=== PATIENT | female | born 1975 | race Caucasian/White ===

== ENCOUNTER → 2018-09-16 | Outpatient (CLI) | payer OTHER | END | disposition home or self-care (01) | LOC: LABPAT 16:49 | PROVIDERS: ATTEND Orthopaedic Surgery | DX: Z01.812 Encounter for preprocedural laboratory examination (principal) | CPT/HCPCS: 87070 ==

== ENCOUNTER 2018-10-03 11:33 | Inpatient (IN) | payer BC, OTHER ==
--- NOTE | 2018-10-02 09:42 | HP ---
HISTORY AND PHYSICAL REASON FOR ADMISSION: Surgery 10/03/2018. HISTORY OF PRESENT ILLNESS: Louise Galvan is a 43-year-old patient seen with symptomatic right knee osteoarthritis. We discussed options for treatment. She elected to proceed with right total knee arthroplasty. Consent was obtained. Medical clearance was provided by ROBERT Cornell. PAST MEDICAL HISTORY: Hypothyroidism, noninsulin dependent diabetes, hypertension. PAST SURGICAL HISTORY: Carpal tunnel release, cholecystectomy, left knee arthroscopy, laparoscopic gastric band. DAILY MEDICATIONS: Levothyroxine, spironolactone, lorazepam, Protonix. ALLERGIES: None. SOCIAL HISTORY: She denies current tobacco use. PHYSICAL EXAMINATION: Evaluation of the right knee: Range of motion is -2/3 to 120 degrees. Tenderness along the medial joint line. There is crepitus along the medial and patellofemoral compartments with range of motion. There is pain along the patellofemoral compartment with patellofemoral compression. Ligaments are stable. Hip rotation is without pain. Distal neurovascular exam is intact. RADIOGRAPHS: Right knee radiographs demonstrate is severe medial compartment osteoarthritis. IMPRESSION: 1. Right knee osteoarthritis. 2. Hypertension. 3. Noninsulin dependent diabetes. 4. Hypothyroidism. PLAN: Right total knee arthroplasty. Surgery is 10/03/2018. MMODL / IJN: [id number] /
[~2018-10-03 11:33] MED LIST: ACETAMINOPHEN TAB 500 MG TAB PO ONE; MELOXICAM 7.5 MG TAB PO ONE; TRANEXAMIC ACID 1,000 MG in SODIUM CHLORIDE 0.9% 100 ML IVPB ONE; ceFAZolin IN SWFI 2 GM/20 ML SYRINGE IVP ONE
[2018-10-03] MEDS ORDERED: LACTATED RINGERS 1,000 ML IV SCH (11:42)
[2018-10-03] MEDS ORDERED: LIDOCAINE 1% 20 ML VIAL (10MG/ML) FOR IV START INTRADERMA PRN (11:42)
[2018-10-03] MEDS ORDERED: DEXAMETHASONE SOD PHOSPHATE 10 MG/ML 1 ML VIAL IV ONE (11:42)
[2018-10-03] MEDS ORDERED: ONDANSETRON 4 MG/2 ML VIAL IVP ONE (11:42)
[2018-10-03] MEDS ORDERED: ROPIVACAINE 246.25 MG, EPINEPHrine 0.5 MG, KETOROLAC 30 MG, cloNIDine HCL/PF 80 MCG, WA... MISCELLANE ONE ×5 (12:16)
[2018-10-03] MEDS ORDERED: MIDAZOLAM (PF) 2 MG/2 ML VIAL IVP ONE (12:33)
[2018-10-03] MEDS ORDERED: PROPOFOL 10 MG/ML 20 ML VIAL IV ONE (12:58)
[2018-10-03] MEDS ORDERED: SODIUM CHLORIDE 0.9% 100 ML BAG ONE (12:58)
[2018-10-03] MEDS ORDERED: MIDAZOLAM 2 MG/2 ML VIAL ONE (12:58)
[2018-10-03] MEDS ORDERED: TRANEXAMIC ACID 1,000 MG/10 ML VIAL ONE (12:58)
[2018-10-03] MEDS ORDERED: KETAMINE 10 MG/ML 20 ML VIAL ONE (12:58)
[2018-10-03] MEDS ORDERED: fentaNYL (PF) 50 MCG/ML 2 ML AMP ONE (12:58)
[2018-10-03] MEDS ORDERED: ceFAZolin 3,000 MG in SODIUM CHLORIDE 0.9% IRRIGATIO 3,000 ML IRRIGATION ONE (13:37)
--- NOTE | 2018-10-03 14:56 | P.OP ---
Date of Procedure: 10/03/18 Preoperative Diagnosis: Right knee osteoarthritis Postoperative Diagnosis: Right knee osteoarthritis Procedure(s) Performed: Right total knee arthroplasty Implants: 1. Depuy attune size 4 right cruciate-retaining cemented femur 2. Depuy attune size 4 fixed bearing cemented tibial baseplate 3. Depuy attune fixed bearing cruciate retaining size 410 mm polyethylene tibial insert 4. Depuy attune 35 mm all polyethylene cemented patella Anesthesia: regional (Adductor canal catheter), local, spinal Surgeon: Bijan Castelan Transmission Worker #1: Parker Montaño Estimated Blood Loss (ml): 40 Pathology: other (Bone) Condition: stable Disposition: PACU Indications for Procedure: 43-year-old patient seen with symptomatic right knee osteoarthritis. After having treatment options discussed, she elected to proceed with total knee arthroplasty. Operative Findings: See description of procedure Description of Procedure: Patient was taken to the operative suite after having an adductor canal catheter placed by the department of anesthesia for postoperative pain management. Patient underwent a spinal anesthetic by the department of anesthesia. Patient was given preoperative IV intake antibiotics and TXA. A well-padded tourniquet was placed about the right lower extremity. The lower extremity was then prepped and draped in the normal sterile orthopedic fashion. The extremity was elevated, a tourniquet was insufflated to 300. A standard anterior incision was made sharply through skin. Dissection was taken down through the subcutaneous soft tissues down to the extensor mechanism. A medial arthrotomy was performed, patella was everted and knee was flexed. There was advanced osteoarthritis noted. I introduced my distal intramedullary femoral drill. I then introduced the distal femoral cutting jig. Jose Juan LANDON secured the cutting jig with 2 pins. I held retractors in position while Jose Juan LANDON performed the distal femoral resection through the guide area we now removed her distal femoral cutting guide. We now placed our 4-in-1 femoral cutting block and positioned and it was secured with 2 pins by Jose Juan LANDON while I held the block in position. The distal femoral finishing was now completed. A proximal tibial cutting guide was positioned. I held the guide in the appropriate position with both hands well Jose Juan LANDON inserted stabilizing pins into the guide. Proximal tibial cut was made. We now placed a trial femoral component into position, along with an appropriate size tibial tray and insert. We now took the knee through range of motion and had full extension good flexion and good overall soft tissue balance noted. The patella was everted and stabilized with 2 towel clips held by Jose Juan LANDON while I performed a flush with patellar quad tendon utilizing a fresh sawblade. We templated the patella, appropriate drill holes were made. An appropriate trial patella was positioned, knee was taken through full range of motion with the patella tracking very nicely. The trial patella was removed. Drill holes were made through the femoral component. All trial components were removed after marking off the appropriate rotation of the tibia. Retractors were now positioned along the proximal tibia. An appropriate keel punch was made with the appropriate size tibial guide by myself on Jose Juan LANDON assisted by holding retractors. At this point appropriate size implants were chosen and opened. The joint was irrigated copiously with pulse lavage mechanical irrigation. The posterior capsule was infiltrated with local analgesic. The wound was irrigated with pulse lavage mechanical irrigation. We mixed antibiotic methylmethacrylate. We placed the knee into flexion. We placed multiple retractors assisted by Jose Juan LANDON to expose the proximal tibia. Once the methyl methacrylate was ready, the tibial component was cemented into place removing any excess methylmethacrylate form by both myself and Jose Juan LANDON. The femoral component was cemented into place removing the removing any excess methylmethacrylate performed by both myself and Jose Juan LANDON. We then inserted the appropriate size polyethylene tibial insert. We made sure that it was locked into position. We took the knee into full extension, and then back in a flexion making sure we had removed any excess methylmethacrylate. The patellar component was then cemented down and secured with clamp. Excess methylmethacrylate removed. We kept the knee in full extension, patellar clamp in position until methylmethacrylate had hardened. Once it had hardened the patellar clamp was removed. The knee was taken through full range of motion. The patella tracked nicely. There was good soft tissue balancing. The tourniquet was now released. Additional hemostasis was achieved via electrocautery. A second gram of TXA was given. The wound again was irrigated with pulse lavage mechanical irrigation. The superficial soft tissues were infiltrated local analgesic. The extensor mechanism was repaired with Vicryl. We checked the repair with range of motion and it was stable. The subcutaneous soft tissues were repaired with Vicryl in layers. The skin was approximated with pernio/Dermabond. Sterile dressings were applied followed by loose web roll and Husam bandage. The patient was transferred to a bed, and taken to recovery in stable and satisfactory condition. Jose Juan LANDON assisted with this complex procedure.
[2018-10-03] MEDS ORDERED: HYDROmorphone 0.5 MG/0.5 ML SYRINGE IVP PRN (14:57)
[2018-10-03] MEDS ORDERED: ONDANSETRON 4 MG/2 ML VIAL IVP PRN (14:57)
[2018-10-03] MEDS ORDERED: HYDROcodone/APAP 5-325MG 1 EACH TAB PO PRN (14:57)
[2018-10-03] MEDS ORDERED: NALOXONE 0.4 MG/ML 1 ML VIAL IV PRN (14:57)
[2018-10-03] MEDS: MEPERIDINE 50 MG/ML SYRINGE IVP ONE ×2 (15:07→15:11)
[2018-10-03] MEDS ORDERED: ROPIVACAINE 1,100 MG, SODIUM CHLORIDE 0.9% 500 ML 330 ML MISCELLANE PRN ×2 (15:23)
--- NOTE | 2018-10-03 15:40 | XR ---
EXAMINATION TYPE: XR knee limited RT DATE OF EXAM: 10/03/2018 COMPARISON: NONE HISTORY: 43-year-old female evaluation for postoperative abnormality and alignment TECHNIQUE: 2 views FINDINGS: Images show placement of right ovarian arthroplasty. Both distal femoral and proximal tibial componen ts of the prosthesis appear well seated without periprosthetic fracture. Anterior soft tissue swellin g with anterior skin sulaiman, scattered soft tissue air as well as intra-articular air compatible wit h recent operation. Alignment grossly anatomic. IMPRESSION: Uncomplicated postoperative appearance right total knee arthroplasty.
[2018-10-03] MEDS ORDERED: LACTATED RINGERS 1,000 ML IV ONE (16:00)
[2018-10-03] MEDS: HYDROmorphone 1 MG/ML 1 ML SYRINGE IVP ONE ×2 (17:02→17:11)
[2018-10-03] MEDS: LACTATED RINGERS 1,000 ML IV SCH ×2 (17:19→21:00)
[2018-10-03 17:47] VITALS: BMI 46.5
[2018-10-03] MEDS: HYDROcodone/APAP 7.5-325MG 1 EACH TAB PO PRN ×2 (17:50→23:31)
[2018-10-03] MEDS ORDERED: ceFAZolin IN SWFI 2 GM/20 ML SYRINGE IVP SCH (18:00)
[2018-10-03] MEDS: HYDROmorphone 0.5 MG/0.5 ML SYRINGE IVP PRN (20:55)
[2018-10-03] MEDS: SENNOSIDES-DOCUSATE SODIUM 1 EACH TAB PO SCH (20:55)
[2018-10-03] MEDS: ceFAZolin IN SWFI 2 GM/20 ML SYRINGE IVP SCH (20:55)
[2018-10-03] MEDS ORDERED: MELATONIN 3 MG TABLET PO PRN (21:35)
--- NOTE | 2018-10-03 21:35 | P.CONS ---
History of Present Illness - Reason for Consult Consult date: 10/03/18 medical evaluation and management post operatively Requesting physician: Bijan Castelan - Chief Complaint scheduled right total knee arthroplasty - History of Present Illness 43-year-old female with history of osteoarthritis, hypothyroidism with history of Doron's Patient presented for scheduled right total knee arthroplasty due to severe advanced degenerative joint disease. Patient is seen postoperative day 0 per orthopedic service request for postoperative medical management.patient doing well tolerated procedure well denies any immediate complications postop denies any chest pain or trouble breathing pain is well tolerated she did not pass urine yet she tolerated by mouth intake. Denies any nausea vomiting headache dizziness or lightheadedness. Denies any abdominal pain. Medication reviewed and reconciled Review of Systems Pertinent positives as noted in HPI. All other systems were reviewed and are negative Past Medical History Past Medical History: GERD/Reflux, Osteoarthritis (OA), Thyroid Disorder Additional Past Medical History / Comment(s): hx genital herpes, anemia History of Any Multi-Drug Resistant Organisms: None Reported Past Surgical History: Bariatric Surgery, Cholecystectomy Additional Past Surgical History / Comment(s): BILATERAL CARPAL TUNNEL RELEASE , LEFT KNEE ARTHROSCOPIC x2, LAP BAND, D&C Past Anesthesia/Blood Transfusion Reactions: Previous Problems w/ Anesthesia, Motion Sickness, Postoperative Nausea & Vomiting (PONV) Additional Past Anesthesia/Blood Transfusion Reaction / Comm: "STATES WOKE UP SURING SURGERY", Vertigo Past Psychological History: Depression Smoking Status: Former smoker Past Alcohol Use History: Occasional Additional Past Alcohol Use History / Comment(s): QUIT SMOKING IN 2000, STARTED SMOKING AGE15/ LESS THAN 1/2 PPD Past Drug Use History: Marijuana Additional Drug Use History / Comment(s): medical marijuana - Past Family History Mother Family Medical History: Deep Vein Thrombosis (DVT), Vascular Disorder Medications and Allergies Home Medications Medication Instructions Recorded Confirmed Type Ibuprofen [Motrin] 800 mg PO Q6HR 06/18/15 10/03/18 History Levothyroxine Sodium [Synthroid] 175 mcg PO DAILY 06/18/15 10/03/18 History Spironolactone [Aldactone] 50 mg PO DAILY 06/18/15 10/03/18 History HYDROcodone/APAP 7.5-325MG [[place] 1 - 2 each PO Q6HR PRN #40 tab 06/20/15 10/03/18 Rx 7.5-325] Low-Loestrin 1 tab PO DAILY 09/26/18 10/03/18 History Naproxen Sodium [Aleve] 220 mg PO DAILY PRN 09/26/18 10/03/18 History valACYclovir HCL [Valacyclovir] 1,000 mg PO DAILY 09/26/18 10/03/18 History Allergies Allergy/AdvReac Type Severity Reaction Status Date / Time povidone-iodine Allergy Rash/Hives Verified 10/03/18 11:48 [From Betadine] soap [From Betadine] Allergy Rash/Hives Verified 10/03/18 11:48 glue used for surgical Allergy Rash/Hives Uncoded 10/03/18 11:48 incision Physical Exam Vitals: Vital Signs Temp Pulse Pulse Resp BP BP Pulse Ox 10/03/18 17:47 98.0 F 73 16 114/75 99 10/03/18 17:01 71 18 110/56 94 L 10/03/18 16:30 70 16 103/54 95 10/03/18 16:00 81 18 105/53 96 10/03/18 15:47 78 16 104/51 96 10/03/18 15:32 76 18 106/53 95 10/03/18 15:17 80 16 124/60 98 10/03/18 15:03 79 16 123/68 97 10/03/18 14:57 98.3 F 90 14 138/94 98 10/03/18 12:50 71 14 139/67 100 10/03/18 11:58 97.8 F 73 15 137/86 99 Intake and Output 10/03/18 10/03/18 10/03/18 06:59 14:59 22:59 Intake Total 801 700 Output Total 40 Balance 761 700 Intake: IV 801 700 Output: Estimated Blood Loss 40 Constitutional: No acute distress, conversant, pleasant, morbidly obese Eyes: Anicteric sclerae, moist conjunctiva, no lid-lag Pupils equal round reactive to light ENMT: NC/AT Oropharynx clear, no erythema, exudates Neck: Supple, FROM, no masses, or JVD No carotid bruits No thyromegaly Lungs: Clear to auscultation Clear to percussion Normal respiratory effort, no accessory muscle use Cardiovascular: Heart regular in rate and rhythm, No murmurs, gallops, or rubs No peripheral edema Abdominal: Soft Nontender, no guarding, rebound or rigidity Abdomen moving with respiration Normoactive bowel sounds No hepatomegaly, No splenomegaly No palpable mass No abdominal wall hernia noted Skin: Normal temperature, tone, texture, turgor No induration No subcutaneous nodules No rash, lesions No ulcers Extremities: right lower extremity wrapped in surgical dressing pain pump for nerve block is in place No digital cyanosis No clubbing Pedal pulses intact and symmetrical Radial pulses intact and symmetrical No calf tenderness Psychiatric: Alert and oriented to person, place and time Appropriate affect fair judgment Neuro Muscles Strength 5/5 in all 4 extremities Except for some limited exam over the right lower extremity due to recent surgery Sensation to light touch grossly present throughout Cranial nerves II-XII grossly intact No focal sensory deficits Lymphatics: no palpable cervical or supraclavicular , or inguinal lymph nodes Assessment and Plan Assessment: 43-year-old female with history of osteoarthritis and Doron's thyroiditis admitted for scheduled right total knee arthroplasty medicine consultative for postoperative medical management Plan: advanced severe degenerative joint disease of the right knee status postright total knee arthroplasty postoperative day 0 DVT prophylaxis and pain control per orthopedic service currently on Lovenox Encourage incentive spirometry History of Doron's thyroiditis with hypothyroidism Resume levothyroxine History of recurrent cold sores, continue with valacyclovir Resume spironolactone in a.m. Check CBC and BMP in the morning Patient is full code Thank you for allowing us to participate in the care of this patient. Do not hesitate to contact us with questions. Someone can be reached from the [facility] hospitalist group at all hours of the day at [phone].
[2018-10-04] MEDS: HYDROmorphone 0.5 MG/0.5 ML SYRINGE IVP PRN (03:45)
[2018-10-04] MEDS: LEVOTHYROXINE 88 MCG TAB PO SCH (05:07)
[2018-10-04] MEDS: ceFAZolin IN SWFI 2 GM/20 ML SYRINGE IVP SCH (05:07)
[2018-10-04] MEDS: HYDROcodone/APAP 7.5-325MG 1 EACH TAB PO PRN ×3 (07:26→19:39)
[2018-10-04] MEDS: MELOXICAM 7.5 MG TAB PO SCH (07:27)
[2018-10-04] MEDS: valACYclovir HCL 1,000 MG TABLET PO SCH (07:27)
[2018-10-04] MEDS: ENOXAPARIN 30 MG/0.3 ML SYRINGE SQ SCH ×2 (07:27→20:19)
[2018-10-04] MEDS: SPIRONOLACTONE 25 MG TAB PO SCH (07:27)
[2018-10-04 09:11] LABS: Basophils % (A) 0 %; Eosinophils % (A) 0 %; HCT 33.4 % (34.0-46.0); HGB 11.2 gm/dL (11.4-16.0); Lymphocytes # (A) 1.6 k/uL (1.0-4.8); Lymphocytes % (A) 11 %; MCH 31.1 pg (25.0-35.0); MCHC 33.4 g/dL (31.0-37.0); MCV 93.1 fL (80.0-100.0); Mean Platelet Volume 7.3; Monocytes # (A) 0.8 k/uL (0-1.0); Monocytes % (A) 5 %; Neutrophils % (A) 83 %; Platelet Count 331 k/uL (150-450); RBC 3.59 m/uL (3.80-5.40); RDW 13.1 % (11.5-15.5); WBC 14.6 k/uL (3.8-10.6)
[2018-10-04 09:22] LABS: African American GFR (CKD) >90 (>60 ml/min/1.73 sqM); Anion Gap 9 mmol/L; Blood Urea Nitrogen 8 mg/dL (7-17); Calcium 8.8 mg/dL (8.4-10.2); Carbon Dioxide 23 mmol/L (22-30); Chloride 106 mmol/L (98-107); Glucose 154 mg/dL (74-99); Potassium 4.4 mmol/L (3.5-5.1); Sodium 138 mmol/L (137-145)
--- NOTE | 2018-10-04 10:12 | P.PN ---
Progress Note - Text 10/04 640am 43 yr old female s/p tkr by Dr Castelan. pt has a on -q pump for post op pain control,she has a vas of 7,she was technically difficult for the catheter placement.The solution is running at 8 cc per hour.
--- NOTE | 2018-10-04 10:46 | P.ANPRN ---
Procedure Note - Anesthesia - Nerve Block Performed Right Adductor Canal Infusion Time Out Performed: Yes Date of Procedure: 10/03/18 Procedure Start Time: 12:33 Procedure Stop Time: 12:49 Location of Patient Procedure: PreOp Indication: Acute Post-Operative Pain, Requested by physician Sedation Type: Sedate with meaningful contact maintained Preparation: Sterile Prep, Sterile Dressing Position: Supine Catheter: Indwelling Needle Types: Pajunk Needle Gauge: 21 Technique: Ultrasound (ropi .5% 20 cc) Blood Aspirated: No Pain Paresthesia on Injection Noted: No Resistance on Injection: Normal Events: Uneventful and Well Tolerated
--- NOTE | 2018-10-04 11:47 | P.PN ---
Subjective Progress Note Date: 10/04/18 Principal diagnosis: Status post right total knee arthroplasty Patient evaluated bedside, she is resting in her hospital bed. She is having hard time with pain controlled this time, she is getting around okay. She denies any chest pain or shortness of breath. Objective - Vital Signs Vital signs: Vital Signs Temp 97.7 F 10/04/18 07:05 Pulse 75 10/04/18 07:05 Resp 16 10/04/18 07:05 BP 110/65 10/04/18 07:05 Pulse Ox 97 10/04/18 07:05 Intake & Output 10/03/18 10/04/18 10/04/18 18:59 06:59 18:59 Intake Total 1501 840 450 Output Total 40 1000 Balance 1461 -160 450 Intake: IV 1501 Oral 840 450 Output: Urine 1000 Estimated Blood Loss 40 Other: Voiding Method Toilet - Exam Right lower extremity: Incision is clean, dry, and intact. The sulaiman is in good condition. There is minimal soft tissue swelling and ecchymosis surrounding the medial and lateral aspects of the incision. Calf is soft, no tenderness with palpation. Plantar flexion, dorsiflexion, EHL, FHL are intact. Sensory exam to light touch throughout the extremity is intact, dorsal pedis pulses 2+. - Labs CBC & Chem 7: 10/04/18 08:36 10/04/18 08:36 Labs: Abnormal Lab Results - Last 24 Hours (Table) 10/04/18 10/04/18 Range/Units 08:36 08:36 WBC 14.6 H (3.8-10.6) k/uL RBC 3.59 L (3.80-5.40) m/uL Hgb 11.2 L (11.4-16.0) gm/dL Hct 33.4 L (34.0-46.0) % Neutrophils # 12.0 H (1.3-7.7) k/uL Glucose 154 H (74-99) mg/dL Assessment and Plan Plan: Assessment: Postoperative day 1 status post right total knee arthroplasty Plan: Pain control, will increase oral medication GI and DVT prophylaxis, continue current medication Ice and elevate often Encourage incentive spirometer Daily dressing changes Medical recommendations Due to patient's increasing pain, we'll keep patient one additional night. Inpatient status made, plan for discharge home tomorrow Time with Patient: Less than 30
--- NOTE | 2018-10-04 12:08 | P.PN ---
Subjective Progress Note Date: 10/04/18 Patient examined at bedside, having ongoing pain in the right knee reports it as severe. Denies any subjective fevers chills night sweats denies chest pain or shortness of breath. White count 14.6. Hemoglobin 11.2. No acute events overnight Objective - Vital Signs Vital signs: Vital Signs Temp 97.7 F 10/04/18 07:05 Pulse 75 10/04/18 07:05 Resp 16 10/04/18 07:05 BP 110/65 10/04/18 07:05 Pulse Ox 97 10/04/18 07:05 Intake & Output 10/03/18 10/04/18 10/04/18 18:59 06:59 18:59 Intake Total 1501 840 450 Output Total 40 1000 Balance 1461 -160 450 Intake: IV 1501 Oral 840 450 Output: Urine 1000 Estimated Blood Loss 40 Other: Voiding Method Toilet - Exam Constitutional: No acute distress, conversant, pleasant Eyes: Anicteric sclerae, moist conjunctiva, no lid-lag, PERRLA ENMT: NC/AT,Oropharynx clear, no erythema, exudates Neck:Supple, FROM, no masses, or JVD, No carotid bruits; No thyromegaly Lungs: Clear to auscultation, Clear to percussion, Normal respiratory effort, no accessory muscle use Cardiovascular: Heart regular in rate and rhythm, No murmurs, gallops, or rubs no peripheral edema Abdominal: Soft Nontender, nom distended, no guarding, no rebound or rigidity, Normoactive bowel sounds No hepatomegaly, No splenomegaly, No palpable mass No abdominal wall hernia noted Skin: Normal temperature, tone, texture, turgor, No induration No subcutaneous nodules, No rash, lesions, No ulcers Extremities: The right lower extremity with minimal soft tissue swelling around her incision, able to wiggle toes, EHL/FHL are intact, neurovascularly intact Psychiatric: Alert and oriented to person, place and time, Appropriate affect Intact judgement Neuro: Muscles Strength 5/5 in all 4 extremities, Sensation to light touch grossly present throughout, Cranial nerves II-XII grossly intact. No focal sensory deficits - Labs CBC & Chem 7: 10/04/18 08:36 10/04/18 08:36 Labs: Abnormal Lab Results - Last 24 Hours (Table) 10/04/18 10/04/18 Range/Units 08:36 08:36 WBC 14.6 H (3.8-10.6) k/uL RBC 3.59 L (3.80-5.40) m/uL Hgb 11.2 L (11.4-16.0) gm/dL Hct 33.4 L (34.0-46.0) % Neutrophils # 12.0 H (1.3-7.7) k/uL Glucose 154 H (74-99) mg/dL Assessment and Plan (1) Hypothyroidism Narrative/Plan: * Continue home regimen Current Visit: Yes Status: Chronic Code(s): E03.9 - HYPOTHYROIDISM, UNSPECIFIED SNOMED Code(s): 46236558 (2) GERD (gastroesophageal reflux disease) Narrative/Plan: * Stable continue home regimen Current Visit: Yes Status: Chronic Code(s): K21.9 - GASTRO-ESOPHAGEAL REFLUX DISEASE WITHOUT ESOPHAGITIS SNOMED Code(s): 108515229 (3) Osteoarthritis of right knee Current Visit: Yes Status: Chronic Code(s): M17.11 - UNILATERAL PRIMARY OSTEOARTHRITIS, RIGHT KNEE SNOMED Code(s): 600042913401308 (4) Status post total right knee replacement Current Visit: Yes Status: Acute Code(s): Z96.651 - PRESENCE OF RIGHT ARTIFICIAL KNEE JOINT SNOMED Code(s): 4197956657675 (5) Leukocytosis Current Visit: Yes Status: Acute Code(s): D72.829 - ELEVATED WHITE BLOOD CELL COUNT, UNSPECIFIED SNOMED Code(s): 525212986 (6) Postoperative anemia due to acute blood loss Current Visit: Yes Status: Acute Code(s): D62 - ACUTE POSTHEMORRHAGIC ANEMIA SNOMED Code(s): 41632589462792251 Plan: Patient doing well medically postop although having cold time with pain control, has a mild leukocytosis has been afebrile. Also with mild anemia. Currently medically stable sign off today
[2018-10-04] MEDS: LACTATED RINGERS 1,000 ML IV SCH ×2 (12:13→21:16)
[2018-10-04] MEDS: HYDROmorphone 1 MG/ML 1 ML SYRINGE IVP PRN ×3 (13:06→23:15)
[2018-10-04] MEDS: SENNOSIDES-DOCUSATE SODIUM 1 EACH TAB PO SCH (20:19)
[2018-10-05] MEDS: HYDROmorphone 1 MG/ML 1 ML SYRINGE IVP PRN (04:23)
[2018-10-05] MEDS: LEVOTHYROXINE 88 MCG TAB PO SCH (05:29)
[2018-10-05] MEDS: ENOXAPARIN 30 MG/0.3 ML SYRINGE SQ SCH (07:33)
[2018-10-05] MEDS: SPIRONOLACTONE 25 MG TAB PO SCH (07:33)
[2018-10-05] MEDS: HYDROcodone/APAP 7.5-325MG 1 EACH TAB PO PRN (07:33)
[2018-10-05] MEDS: MELOXICAM 7.5 MG TAB PO SCH (07:33)
[2018-10-05] MEDS: valACYclovir HCL 1,000 MG TABLET PO SCH (07:35)
[2018-10-05] MEDS: LACTATED RINGERS 1,000 ML IV SCH (07:37)
[2018-10-05] MEDS ORDERED: HYDROcodone/APAP 10-325MG 1 EACH TAB PO PRN ×2 (10:15)
--- NOTE | 2018-10-05 10:49 | P.PN ---
Subjective Progress Note Date: 10/05/18 Principal diagnosis: Status post right total knee arthroplasty Patient evaluated bedside, she is resting in her hospital bed. Patient did note slight improvement in her pain, still requiring some IV pain medication. She denies any chest pain or shortness of breath. Objective - Vital Signs Vital signs: Vital Signs Temp 98.8 F 10/05/18 07:00 Pulse 82 10/05/18 07:00 Resp 16 10/05/18 07:00 BP 120/84 10/05/18 07:00 Pulse Ox 100 10/05/18 07:00 Intake & Output 10/04/18 10/05/18 10/05/18 18:59 06:59 18:59 Intake Total 650 1200 600 Balance 650 1200 600 Intake: Oral 650 1200 600 Other: Voiding Method Toilet # Voids 3 2 - Exam Right lower extremity: Incision is clean, dry, and intact. The sulaiman is in good condition. There is minimal soft tissue swelling and ecchymosis surrounding the medial and lateral aspects of the incision. Calf is soft, no tenderness with palpation. Plantar flexion, dorsiflexion, EHL, FHL are intact. Sensory exam to light touch throughout the extremity is intact, dorsal pedis pulses 2+. - Labs CBC & Chem 7: 10/04/18 08:36 10/04/18 08:36 Assessment and Plan Plan: Assessment: Postoperative day #2 status post right total knee arthroplasty Plan: Pain control, we'll increase her oral medication to the 10 mg/325 mg dose GI and DVT prophylaxis, Eliquis 2.5 mg twice a day after discharge Ice and elevate often Encourage incentive spirometer Daily dressing changes Medical recommendations We'll reassess patient's pain later on this afternoon, hopefully discharge home today. Time with Patient: Less than 30
[2018-10-05 14:53] VITALS: BP 107/71; PULSE 72; RESP 14; TEMP 98.2
--- NOTE | 2018-10-05 16:40 | P.DS ---
Providers Date of admission: 10/03/2018 Expected date of discharge: 10/05/18 Attending physician: Bijan Castelan Primary care physician: Stated None Hospital Course: Date of admission: 10/03/2018 Date of discharge: 10/04/2018 Admission diagnosis: Status post right total knee arthroplasty Discharge diagnosis: Same Attending physician: Dr. Castelan Surgical procedures: Right total knee arthroplasty Brief history: Patient is a 43-year-old female with a history of progressive primary right knee osteoarthritis. At this point patient has failed conservative treatment measures and has opted to proceed with a elective right total knee arthroplasty. Hospital course: Details of patient's surgery can be found in operative report. Patient tolerated the procedure well and was subsequently transported to orthopedic floor. Patient's orthopeidc and medical care was provided daily. Patient had daily laboratory tests performed for evaluation of overall blood counts. Patient had daily physical therapy to include strengthening range of motion as well as education with walker ambulation. Patient had daily CPM usage as part of their physical therapy program. Patient was treated with Lovenox for their postoperative DVT prophylaxis during their inpatient stay. Patient was noted to have a relatively uneventful postoperative course. Patient reported satisfactory pain control with oral pain medications by postoperative day 0. Patient showed satisfactory progress with physical therapy. Patient moved steadily through the program and had no difficulty meeting the goals by postoperative day 2. Given patient's otherwise satisfactory course and having met physical therapy goals, plan is to discharge patient home on postoperative day 2. Discharge condition/disposition: Patient will be discharged home in stable condition. Discharge medications: Instructions are given on resumption of patient's normal daily medications per primary care recommendation, in addition patient will be prescribed [place] 10 mg/325 mg, tramadol 50 mg, Colace 100 mg, Eliquis 2.5mg. Discharge instructions: 1. Wound care and infection precautions, keep incision dry and covered while showering, no lotions, creams, moisturizers. No soaking, tubs, pools, hottubs. Do not scrub over the incision. 2. Weight-bear as tolerated with walker / cane until follow-up. 3. Ice and elevate when necessary. Do not exceed 20 minutes per hour with ice pack. 4. Utilize compression sleeve until seen at first follow up appointment. 5. Visiting nursing care. 6. Home physical therapy including home CPM. 7. Pain meds and anticoagulants per prescription. 8. Pain medication has potential to cause constipation. Increase oral fluid and fiber intake. Contact primary care provider if you have not had a bowel movement within 48 hours after discharge 9. No anti-inflammatory medication until discussed at first post operative visit, this including Motrin, Aleve, Mobic, Diclofenac. 10. Follow up in office at 2 weeks postop with Jose Juan Montaño PA-C 11. Follow up with your primary care doctor 7-10 days after discharge. 12. Contact [facility] with any questions, . Procedures: Right total knee arthroplasty Patient Condition at Discharge: Good Plan - Discharge Summary Discharge Rx Participant: Yes New Discharge Prescriptions: New Docusate [Colace] 100 mg PO DAILY #30 capsule Apixaban [Eliquis] 2.5 mg PO BID #60 tab Hydrocodone/Acetaminophen [[place] 10-325] 1 - 2 each PO Q6H PRN #56 tab PRN Reason: Pain traMADol HCl [Ultram] 50 mg PO Q6H PRN #28 tab PRN Reason: Pain Discontinued HYDROcodone/APAP 7.5-325MG [[place] 7.5-325] 1 - 2 tab PO Q6HR PRN PRN Reason: Pain No Action Ibuprofen [Motrin] 800 mg PO Q6HR Spironolactone [Aldactone] 50 mg PO DAILY Levothyroxine Sodium [Synthroid] 175 mcg PO DAILY valACYclovir HCL [Valacyclovir] 1,000 mg PO DAILY Naproxen Sodium [Aleve] 220 mg PO DAILY PRN PRN Reason: Pain Lo-Loestrin 1 tab PO DAILY Discharge Medication List Ibuprofen [Motrin] 800 mg PO Q6HR 06/18/15 [History] Levothyroxine Sodium [Synthroid] 175 mcg PO DAILY 06/18/15 [History] Spironolactone [Aldactone] 50 mg PO DAILY 06/18/15 [History] Naproxen Sodium [Aleve] 220 mg PO DAILY PRN 09/26/18 [History] valACYclovir HCL [Valacyclovir] 1,000 mg PO DAILY 09/26/18 [History] Lo-Loestrin 1 tab PO DAILY 10/04/18 [History] Apixaban [Eliquis] 2.5 mg PO BID #60 tab 10/05/18 [Rx] Docusate [Colace] 100 mg PO DAILY #30 capsule 10/05/18 [Rx] Hydrocodone/Acetaminophen [[place] 10-325] 1 - 2 each PO Q6H PRN #56 tab 10/05/18 [Rx] traMADol HCl [Ultram] 50 mg PO Q6H PRN #28 tab 10/05/18 [Rx] Follow up Appointment(s)/Referral(s): [facility], [NON-STAFF] - Parker Montaño, PAC [PHYSICIAN SUPERVISOR RECORDS CHANGE] - 10/19/18 2:30 pm Activity/Diet/Wound Care/Special Instructions: Orthopedic Discharge Instructions: 1. Wound care and infection precautions, keep incision dry and covered while showering, no lotions, creams, moisturizers. No soaking, pools, hot tubs. Do not scrub over incision. 2. Weight-bear as tolerated with walker / cane until follow-up. 3. Ice and elevate when necessary. Do not exceed 20 minutes per hour with ice pack. 4. Utilize compression sleeve until seen at first follow up appointment. 5. Pain meds and anticoagulants per prescription. 6. Pain medication has potential to cause constipation. Increase oral fluid and fiber intake. Contact primary care provider if you have not had a bowel movement within 48 hours after discharge. 7. No anti-inflammatory medication until discussed at first post operative visit, this including Motrin, Aleve, Mobic, Diclofenac. 8. Follow up in office at 2 weeks postop with Jose Juan Montaño PA-C 9. Follow up with your primary care doctor 7-10 days after discharge. 10. Contact [facility] with any questions, [phone]. 11. *Please call [facility] once home to arrange delivery of Continuous Passive Motion (CPM) [facility] - [phone] 12. [facility] will deliver crutches to the bedside prior to discharge. Discharge Disposition: HOME WITH HOME HEALTH SERVICES
== END 2018-10-05 16:21 | disposition home or self-care (01) | DRG 470 ==
LOC: OR 11:33 → 4SSUR 17:11 → OR 10-04 04:52 → OBSVTOIN 10-04 11:47
PROVIDERS: ADMIT Orthopaedic Surgery; ATTEND Orthopaedic Surgery
PROC: 0SRC0J9 Replacement of Right Knee Joint with Synthetic Substitute, Cemented, Open Approach (ICD-10-PCS; principal; 2018-10-03 13:00)
DX: M17.11 Unilateral primary osteoarthritis, right knee (principal); D62 Acute posthemorrhagic anemia; Z68.41 Body mass index [BMI] 40.0-44.9, adult; E06.3 Autoimmune thyroiditis; K21.9 Gastro-esophageal reflux disease without esophagitis; I10 Essential (primary) hypertension; E11.9 Type 2 diabetes mellitus without complications; F32.9 Major depressive disorder, single episode, unspecified; D72.829 Elevated white blood cell count, unspecified; Z79.84 Long term (current) use of oral hypoglycemic drugs; E66.01 Morbid (severe) obesity due to excess calories; Z90.49 Acquired absence of other specified parts of digestive tract; Z98.890 Other specified postprocedural states; Z79.890 Hormone replacement therapy; Z79.899 Other long term (current) drug therapy; Z87.891 Personal history of nicotine dependence; Z87.42 Personal history of other diseases of the female genital tract; Z82.49 Family history of ischemic heart disease and other diseases of the circulatory system; Z88.8 Allergy status to other drugs, medicaments and biological substances; Z88.1 Allergy status to other antibiotic agents
CPT/HCPCS: 80048; 81025; 85025; 88300

== ENCOUNTER → 2019-10-16 | Outpatient (CLI) | payer OTHER ==
[2019-10-16 15:01] VITALS: BP 119/89; PULSE 86; RESP 16; TEMP 98.1; BMI 48.8
--- NOTE | 2019-10-23 13:48 | P.HPBAR ---
Bariatric H&P - History & Physicial H&P Date: 10/16/19 History & Physicial: Visit/CC: band f/u Patient initial contact: Initial weight: 117.197 kg Initial weight in pounds: 258.38 Height: 5 ft 1 in Initial BMI: 48.8 Last weight: Current weight: 117.197 kg Current weight in pounds: 258.38 Current BMI: 48.8 [place] body weight (based on NIH guidelines): 47.627 kg Excess body weight loss: 0.0% The patient is a 44 year-old F who presents for Bariatric Assessment. Patient rents today for LAP-BAND adjustment. She currently is hungry and is requesting a fill. Past Medical History Past Medical History: Osteoarthritis (OA), Thyroid Disorder Additional Past Medical History / Comment(s): hx genital herpes, anemia History of Any Multi-Drug Resistant Organisms: None Reported Past Surgical History: Bariatric Surgery, Cholecystectomy Additional Past Surgical History / Comment(s): BILATERAL CARPAL TUNNEL RELEASE , LEFT KNEE ARTHROSCOPIC, LAP BAND Past Anesthesia/Blood Transfusion Reactions: Previous Problems w/ Anesthesia, Motion Sickness, Postoperative Nausea & Vomiting (PONV) Additional Past Anesthesia/Blood Transfusion Reaction / Comm: "STATES WOKE UP SURING SURGERY" Past Psychological History: No Psychological Hx Reported Smoking Status: Unknown if ever smoked Past Alcohol Use History: Occasional Additional Past Alcohol Use History / Comment(s): QUIT SMOKING IN 2000, STARTED SMOKING AGE15/ LESS THAN 1/2 PPD Past Drug Use History: None Reported Additional Drug Use History / Comment(s): medical marijuana - Past Family History Mother Family Medical History: Deep Vein Thrombosis (DVT), Vascular Disorder Surgical - Exam Vital Signs Temp Pulse Resp BP 98.1 F 86 16 119/89 10/16/19 14:57 10/16/19 14:57 10/16/19 14:57 10/16/19 14:57 - General well developed, well nourished, no distress - Eyes PERRL - ENT normal pinna - Neck no masses - Respiratory normal expansion - Cardiovascular Rhythm: regular - Abdomen Abdomen: soft, non tender Bariatric Assessment & Plan Plan: Patient LAP-BAND was adjusted. She had 1 mL added to the band. She currently has 5 mL in the band. She'll follow-up in 4 weeks. Bariatric Checklist Checklist: Plan: Checklist: EGD: 1. Hiatal hernia: 2. H. Pylori: HgbA1c: Vitamin D: Smoking: Former smoker Primary care physician referral: [facility] Psychiatry clearance: Cardiology clearance: Sleep study: Diet journal: VTE risk score: VTE risk level: Rehab needs at discharge:
== END | disposition home or self-care (01) ==
LOC: BARWHC3 14:22
PROVIDERS: ATTEND Surgery
DX: Z46.51 Encounter for fitting and adjustment of gastric lap band (principal); Z98.84 Bariatric surgery status; Z90.49 Acquired absence of other specified parts of digestive tract; Z87.891 Personal history of nicotine dependence
CPT/HCPCS: 99212

== ENCOUNTER 2019-11-01 18:06 | Observation (INO) | payer OTHER ==
--- NOTE | 2019-11-01 18:20 | ED ---
Nausea/Vomiting/Diarrhea HPI - General Chief complaint: Nausea/Vomiting/Diarrhea Stated complaint: trouble swallowing post lap band procedure Time Seen by Provider: 11/01/19 18:18 Source: patient, RN notes reviewed, old records reviewed Mode of arrival: wheelchair Limitations: no limitations - History of Present Illness Initial comments: This is a 44-year-old female DF for evaluation presents today for evaluation persistent nausea vomiting abdominal pain. Patient drinks water for getting LAP-BAND adjusted and has been unable to keep anything down since not secretions and not fluid. Patient does not fill comfortable going home states her symptoms are progressively worsening MD complaint: nausea, vomiting, abdominal pain -: hour(s) Description of Vomiting: watery Associated Abdominal Pain: Yes Location: epigastric Radiation: none Severity: moderate Severity scale (1-10): 5 Quality: aching Consistency: constant Improves with: none Worsens with: none Context: recent surgery/procedure Associated Symptoms: nausea/vomiting - Related Data Home Medications Medication Instructions Recorded Confirmed Ibuprofen [Motrin] 800 mg PO Q6HR 06/18/15 11/01/19 Levothyroxine Sodium [Synthroid] 175 mcg PO DAILY 06/18/15 11/01/19 Spironolactone [Aldactone] 50 mg PO DAILY 06/18/15 11/01/19 Naproxen Sodium [Aleve] 220 mg PO DAILY PRN 09/26/18 11/01/19 valACYclovir HCL [Valacyclovir] 1,000 mg PO DAILY 09/26/18 11/01/19 Lo-Loestrin 1 tab PO DAILY 10/04/18 11/01/19 Previous Rx's Medication Instructions Recorded Apixaban [Eliquis] 2.5 mg PO BID #60 tab 10/05/18 Docusate [Colace] 100 mg PO DAILY #30 capsule 10/05/18 Hydrocodone/Acetaminophen [[place] 1 - 2 each PO Q6H PRN #56 tab 10/05/18 10-325] traMADol HCl [Ultram] 50 mg PO Q6H PRN #28 tab 10/05/18 Allergies Allergy/AdvReac Type Severity Reaction Status Date / Time povidone-iodine Allergy Rash/Hives Verified 11/01/19 18:14 [From Betadine] soap [From Betadine] Allergy Rash/Hives Verified 11/01/19 18:14 glue used for surgical Allergy Rash/Hives Uncoded 11/01/19 18:14 incision Review of Systems ROS Statement: Those systems with pertinent positive or pertinent negative responses have been documented in the HPI. ROS Other: All systems not noted in ROS Statement are negative. Past Medical History Past Medical History: Osteoarthritis (OA), Thyroid Disorder Additional Past Medical History / Comment(s): hx genital herpes, anemia History of Any Multi-Drug Resistant Organisms: None Reported Past Surgical History: Bariatric Surgery, Cholecystectomy Additional Past Surgical History / Comment(s): BILATERAL CARPAL TUNNEL RELEASE , LEFT KNEE ARTHROSCOPIC, LAP BAND Past Anesthesia/Blood Transfusion Reactions: Previous Problems w/ Anesthesia, Motion Sickness, Postoperative Nausea & Vomiting (PONV) Additional Past Anesthesia/Blood Transfusion Reaction / Comment(s): "STATES WOKE UP SURING SURGERY" Past Psychological History: Anxiety, Depression Smoking Status: Former smoker, Unknown if ever smoked Past Alcohol Use History: None Reported Past Drug Use History: Marijuana - Past Family History Mother Family Medical History: Deep Vein Thrombosis (DVT), Vascular Disorder General Exam Limitations: no limitations Course Vital Signs 11/01/19 18:10 Temperature 98.1 F Pulse Rate 84 Respiratory 18 Rate Blood Pressure 178/82 O2 Sat by Pulse 99 Oximetry - Reevaluation(s) Reevaluation #1: 11/01/19 19:06 Medical record is reviewed Reevaluation #2: 11/01/19 19:06 Symptoms improved - Consultations Consultation #1: Spoke with Dr. Johnston who agreed to admit the patient Medical Decision Making - Medical Decision Making 44 female DF for evaluation of abdominal pain. Nausea vomiting after having Indigestion. Patient continued for observation for Dr. Johnston to see in the morning - Radiology Data Radiology results: report reviewed (XR kub is negative for acute disaesae), image reviewed Disposition Clinical Impression: Dehydration, Nausea & vomiting Disposition: ADMITTED IP TO [facility] Condition: Fair Is patient prescribed a controlled substance at d/c from ED?: No Referrals: Lucrecia Sosa, PAC [Primary Care Provider] - 1-2 days
[2019-11-01] MEDS ORDERED: PANTOPRAZOLE 40 MG/10 ML VIAL IVP STA (18:56)
[2019-11-01] MEDS ORDERED: SODIUM CHLORIDE 0.9% 500 ML 500 ML IV STA (18:56)
[2019-11-01] MEDS ORDERED: SODIUM CHLORIDE 0.9% 1,000 ML IV STA (18:56)
[2019-11-01] MEDS ORDERED: MORPHINE SULFATE 4 MG/ML SYRINGE IV STA (18:56)
[2019-11-01] MEDS ORDERED: MORPHINE SULFATE 2 MG/ML SYRINGE IVP PRN (18:56)
[2019-11-01 19:15] LABS: Basophils # (A) 0.1 k/uL (0-0.2); Basophils % (A) 1 %; Eosinophils # (A) 0.2 k/uL (0-0.7); Eosinophils % (A) 2 %; HCT 41.5 % (34.0-46.0); HGB 13.4 gm/dL (11.4-16.0); Lymphocytes % (A) 32 %; MCHC 32.4 g/dL (31.0-37.0); MCV 92.9 fL (80.0-100.0); Monocytes # (A) 0.4 k/uL (0-1.0); Monocytes % (A) 4 %; Neutrophils # (A) 5.6 k/uL (1.3-7.7); Neutrophils % (A) 59 %; Platelet Count 426 k/uL (150-450); RBC 4.47 m/uL (3.80-5.40); RDW 12.2 % (11.5-15.5); WBC 9.4 k/uL (3.8-10.6)
--- NOTE | 2019-11-01 19:21 | XR ---
EXAMINATION TYPE: XR KUB DATE OF EXAM: 11/01/2019 COMPARISON: 01/18/2009 HISTORY: Abdominal pain TECHNIQUE: 2 views upright FINDINGS: There is no sign of intestinal obstruction or pneumoperitoneum. Fecal pattern is normal. Th ere is no evidence of a mass. There are no pathologic calcifications over the kidneys. Lung bases are clear. There is gastric sleeve noted. There are clips from cholecystectomy. IMPRESSION: Nonacute abdomen. No change.
[2019-11-01 19:28] LABS: ALT 15 U/L (4-34); AST 23 U/L (14-36); African American GFR (CKD) >90 (>60 ml/min/1.73 sqM); Albumin 4.6 g/dL (3.5-5.0); Alkaline Phosphatase 53 U/L (38-126); Amylase 46 U/L (30-110); Anion Gap 10 mmol/L; Blood Urea Nitrogen 11 mg/dL (7-17); Calcium 9.9 mg/dL (8.4-10.2); Carbon Dioxide 25 mmol/L (22-30); Chloride 104 mmol/L (98-107); Glucose 91 mg/dL (74-99); Lipase 59 U/L (23-300); Non-African American GFR(CKD) >90 (>60 ml/min/1.73 sqM); Potassium 4.3 mmol/L (3.5-5.1); Sodium 139 mmol/L (137-145); Total Bilirubin 0.6 mg/dL (0.2-1.3); Total Protein 7.7 g/dL (6.3-8.2)
[2019-11-01] MEDS: ONDANSETRON 4 MG/2 ML VIAL IVP PRN (20:30)
[2019-11-01 21:54] VITALS: RESP 18
[2019-11-02] MEDS: ONDANSETRON 4 MG/2 ML VIAL IVP PRN ×2 (00:59→06:01)
[2019-11-02] MEDS: MORPHINE SULFATE 4 MG/ML SYRINGE IVP PRN ×2 (02:25→06:01)
[2019-11-02 02:36] VITALS: TEMP 98.1
[2019-11-02] MEDS ORDERED: PANTOPRAZOLE 40 MG/10 ML VIAL IVP SCH (09:00)
[2019-11-02 10:00] VITALS: BP 124/84; PULSE 86
--- NOTE | 2019-11-02 13:30 | P.GSHP ---
History of Present Illness H&P Date: 11/02/19 CHIEF COMPLAINT: Nausea and vomiting HISTORY OF PRESENT ILLNESS: This is a 44-year-old female with a known history of recent lap band adjustment, hypertension and hypothyroidism. Patient presented to the emergency room complaining of persistent nausea, vomiting and abdominal pain. Patient had lap band adjusted recently with Dr. Johnston. It has been unable to keep anything down. Patient reports a lot of pain in the abdomen and up into the chest. Patient admitted to observation. She was given IV fluids in the ER. PAST MEDICAL HISTORY: See list. PAST SURGICAL HISTORY: See list. MEDICATIONS: See list. ALLERGIES: See list. SOCIAL HISTORY: No illicit drug use. REVIEW OF SYSTEMS: CONSTITUTIONAL: Denies fever or chills. HEENT: Denies blurred vision, vision changes, or eye pain. Denies hemoptysis ENDOCRINE: Denies heat or cold intolerance. CARDIOVASCULAR: Denies chest pain or pressure. RESPIRATORY: No shortness of breath. GASTROINTESTINAL: Denies abdominal pain. Denies nausea or vomiting. HEMATOLOGIC: Denies bleeding disorders. GENITOURINARY: Denies any blood in urine or increased urinary frequency. SKIN: Denies pruitis. Denies rash. PHYSICAL EXAM: VITAL SIGNS: Reviewed GENERAL: Well-developed in no acute distress. HEENT: No sclera icterus. Extraocular movements grossly intact. Moist buccal mucosa. ABDOMEN: Soft. Nondistended. Diffuse abdominal tenderness NEUROLOGIC: No focal or lateralizing signs. Cranial nerves II through XII grossly intact. LABORATORY DATA: WBC 9.4 hemoglobin 13.4 LFTs normal, amylase 46 and lipase 59 IMAGING: KUB x-ray nonacute abdomen. No change ASSESSMENT: 1. Dysphagia after recent lap band adjustment in the office 2. Hypertension 3. Hypothyroidism PLAN: 1. Dr. Johnston removed 7 mLs from lap band port 2. Patient to be discharged today if tolerating clear liquid diet Physician It Support Technician note has been reviewed by physician. Signing provider agrees with the documented findings, assessment, and plan of care. Past Medical History Past Medical History: Osteoarthritis (OA), Thyroid Disorder Additional Past Medical History / Comment(s): hx genital herpes, anemia History of Any Multi-Drug Resistant Organisms: None Reported Past Surgical History: Bariatric Surgery, Cholecystectomy Additional Past Surgical History / Comment(s): BILATERAL CARPAL TUNNEL RELEASE , LEFT KNEE ARTHROSCOPIC, LAP BAND 2008, lab band adjusted 11/01/19 Past Anesthesia/Blood Transfusion Reactions: Previous Problems w/ Anesthesia, Motion Sickness, Postoperative Nausea & Vomiting (PONV) Additional Past Anesthesia/Blood Transfusion Reaction / Comment(s): "STATES WOKE UP SURING SURGERY" Smoking Status: Former smoker - Past Family History Mother Family Medical History: Deep Vein Thrombosis (DVT), Vascular Disorder Medications and Allergies Home Medications Medication Instructions Recorded Confirmed Type Levothyroxine Sodium [Synthroid] 175 mcg PO DAILY 06/18/15 11/01/19 History Spironolactone [Aldactone] 50 mg PO DAILY 06/18/15 11/01/19 History valACYclovir HCL [Valacyclovir] 1,000 mg PO DAILY 09/26/18 11/01/19 History Norethidrone 0.35mg 1 tab PO DAILY 11/01/19 11/01/19 History Vitamin C/Biotin [Hair, Skin and 1 tab PO DAILY 11/01/19 11/01/19 History Nails] Allergies Allergy/AdvReac Type Severity Reaction Status Date / Time povidone-iodine Allergy Rash/Hives Verified 11/01/19 21:34 [From Betadine] soap [From Betadine] Allergy Rash/Hives Verified 11/01/19 21:34 glue used for surgical Allergy Rash/Hives Uncoded 11/01/19 21:34 incision Surgical - Exam Vital Signs Temp Pulse Resp BP Pulse Ox 98.1 F 84 18 178/82 99 11/01/19 18:10 11/01/19 18:10 11/01/19 18:10 11/01/19 18:10 11/01/19 18:10 Results - Labs 11/01/19 18:55 11/01/19 18:55 Diabetes panel 11/01/19 Range/Units 18:55 Sodium 139 (137-145) mmol/L Potassium 4.3 (3.5-5.1) mmol/L Chloride 104 (98-107) mmol/L Carbon Dioxide 25 (22-30) mmol/L BUN 11 (7-17) mg/dL Creatinine 0.65 (0.52-1.04) mg/dL Glucose 91 (74-99) mg/dL Calcium 9.9 (8.4-10.2) mg/dL AST 23 (14-36) U/L ALT 15 (4-34) U/L Alkaline Phosphatase 53 (38-126) U/L Total Protein 7.7 (6.3-8.2) g/dL Albumin 4.6 (3.5-5.0) g/dL Calcium panel 11/01/19 Range/Units 18:55 Calcium 9.9 (8.4-10.2) mg/dL Albumin 4.6 (3.5-5.0) g/dL Pituitary panel 11/01/19 Range/Units 18:55 Sodium 139 (137-145) mmol/L Potassium 4.3 (3.5-5.1) mmol/L Chloride 104 (98-107) mmol/L Carbon Dioxide 25 (22-30) mmol/L BUN 11 (7-17) mg/dL Creatinine 0.65 (0.52-1.04) mg/dL Glucose 91 (74-99) mg/dL Calcium 9.9 (8.4-10.2) mg/dL Adrenal panel 11/01/19 Range/Units 18:55 Sodium 139 (137-145) mmol/L Potassium 4.3 (3.5-5.1) mmol/L Chloride 104 (98-107) mmol/L Carbon Dioxide 25 (22-30) mmol/L BUN 11 (7-17) mg/dL Creatinine 0.65 (0.52-1.04) mg/dL Glucose 91 (74-99) mg/dL Calcium 9.9 (8.4-10.2) mg/dL Total Bilirubin 0.6 (0.2-1.3) mg/dL AST 23 (14-36) U/L ALT 15 (4-34) U/L Alkaline Phosphatase 53 (38-126) U/L Total Protein 7.7 (6.3-8.2) g/dL Albumin 4.6 (3.5-5.0) g/dL
--- NOTE | 2019-11-02 13:34 | P.DS ---
Providers Date of admission: 11/01/19 20:35 Expected date of discharge: 11/02/19 Attending physician: Jose Eduardo Vora Primary care physician: Lucrecia Sosa Hospital Course: Discharge diagnosis 1. Dysphagia after recent lap band adjustment in the office 2. Hypertension 3. Hypothyroidism Hospital course This is a 44-year-old female with a known history of recent lap band adjustment, hypertension and hypothyroidism. Patient presented to the emergency room complaining of persistent nausea, vomiting and abdominal pain. Patient had lap band adjusted recently with Dr. Vora. Patient was given IV fluids and IV Protonix in the ER. Dr. vora removed 7 mLs from her lap band port. Patient's symptoms resolved. She tolerated clear liquid diet. She is able to be discharged home today. She is able to resume a regular diet at discharge. We'll have patient follow-up in one week in the office with Dr. Vora. I performed an examination of the patient and discussed their management with the physician Piercer. I have reviewed the Physician Piercer's notes and agree with the documented findings and plan of care Patient Condition at Discharge: Stable Plan - Discharge Summary Discharge Rx Participant: No New Discharge Prescriptions: Continue Spironolactone [Aldactone] 50 mg PO DAILY Levothyroxine Sodium [Synthroid] 175 mcg PO DAILY valACYclovir HCL [Valacyclovir] 1,000 mg PO DAILY Vitamin C/Biotin [Hair, Skin and Nails] 1 tab PO DAILY Norethidrone 0.35mg 1 tab PO DAILY Discharge Medication List Levothyroxine Sodium [Synthroid] 175 mcg PO DAILY 06/18/15 [History] Spironolactone [Aldactone] 50 mg PO DAILY 06/18/15 [History] valACYclovir HCL [Valacyclovir] 1,000 mg PO DAILY 09/26/18 [History] Norethidrone 0.35mg 1 tab PO DAILY 11/01/19 [History] Vitamin C/Biotin [Hair, Skin and Nails] 1 tab PO DAILY 11/01/19 [History] Follow up Appointment(s)/Referral(s): Lucrecia Sosa, PAC [Primary Care Provider] - 1-2 days Jose Eduardo Vora MD [STAFF PHYSICIAN] - 1 Week Discharge Disposition: HOME SELF-CARE
== END 2019-11-02 14:50 | disposition home or self-care (01) ==
LOC: EC 18:06 → 1SOBS 20:35
PROVIDERS: ADMIT Surgery; ATTEND Surgery
DX: R13.10 Dysphagia, unspecified (principal); R11.2 Nausea with vomiting, unspecified; R19.7 Diarrhea, unspecified; R07.9 Chest pain, unspecified; R10.13 Epigastric pain; E86.0 Dehydration; I10 Essential (primary) hypertension; E03.9 Hypothyroidism, unspecified; Z98.84 Bariatric surgery status; M19.90 Unspecified osteoarthritis, unspecified site; D64.9 Anemia, unspecified; A60.00 Herpesviral infection of urogenital system, unspecified; Z91.048 Other nonmedicinal substance allergy status; F41.9 Anxiety disorder, unspecified; F32.9 Major depressive disorder, single episode, unspecified; Z90.49 Acquired absence of other specified parts of digestive tract; Z87.891 Personal history of nicotine dependence; Z79.890 Hormone replacement therapy; Z79.899 Other long term (current) drug therapy; Z79.1 Long term (current) use of non-steroidal anti-inflammatories (NSAID); Z79.3 Long term (current) use of hormonal contraceptives; Z82.49 Family history of ischemic heart disease and other diseases of the circulatory system
CPT/HCPCS: 96376 ×2; 96361; 96374; 96375; 99285; 36415; 80053; 82150; 83690; 85025; 74018; G0378 ×2; J2270 ×3; J2405 ×2; C9113 ×2; 99212

== ENCOUNTER → 2019-11-01 | Outpatient (CLI) | payer OTHER ==
[2019-11-01 09:27] VITALS: BP 113/73; PULSE 78; TEMP 98.6; BMI 48.5
--- NOTE | 2019-11-02 16:44 | P.HPBAR ---
Bariatric H&P - History & Physicial H&P Date: 11/01/19 History & Physicial: Visit/CC: lap band follow up Patient initial contact: Initial weight: 117.197 kg Initial weight in pounds: 258.38 Height: 5 ft 1 in Initial BMI: 48.8 Last weight: Current weight: 116.573 kg Current weight in pounds: 257.00 Current BMI: 48.5 [place] body weight (based on NIH guidelines): 47.627 kg Excess body weight loss: 0.8% The patient is a 44 year-old F who presents for Bariatric Assessment.patient is hungry and rwequesting a fill Past Medical History Past Medical History: Osteoarthritis (OA), Thyroid Disorder Additional Past Medical History / Comment(s): hx genital herpes, anemia History of Any Multi-Drug Resistant Organisms: None Reported Past Surgical History: Bariatric Surgery, Cholecystectomy Additional Past Surgical History / Comment(s): BILATERAL CARPAL TUNNEL RELEASE , LEFT KNEE ARTHROSCOPIC, LAP BAND Past Anesthesia/Blood Transfusion Reactions: Previous Problems w/ Anesthesia, Motion Sickness, Postoperative Nausea & Vomiting (PONV) Additional Past Anesthesia/Blood Transfusion Reaction / Comm: "STATES WOKE UP SURING SURGERY" Smoking Status: Former smoker, Unknown if ever smoked - Past Family History Mother Family Medical History: Deep Vein Thrombosis (DVT), Vascular Disorder Surgical - Exam Vital Signs Temp Pulse BP 98.6 F 78 113/73 11/01/19 09:22 11/01/19 09:22 11/01/19 09:22 - General well developed, well nourished - Eyes PERRL - ENT normal pinna - Neck no masses - Respiratory normal expansion - Cardiovascular Rhythm: regular - Abdomen Abdomen: soft, non tender Bariatric Assessment & Plan Plan: 2cc added to lapband ; currently has 7cc in band Bariatric Checklist Checklist: Plan: Checklist: EGD: 1. Hiatal hernia: 2. H. Pylori: HgbA1c: Vitamin D: Smoking: Former smoker Primary care physician referral: [facility] Psychiatry clearance: Cardiology clearance: Sleep study: Diet journal: VTE risk score: VTE risk level: Rehab needs at discharge:
== END | disposition home or self-care (01) ==
LOC: BARWHC3 09:03
PROVIDERS: ATTEND Surgery
DX: Z46.51 Encounter for fitting and adjustment of gastric lap band (principal); Z98.84 Bariatric surgery status; Z90.49 Acquired absence of other specified parts of digestive tract
CPT/HCPCS: 99212

== ENCOUNTER → 2019-11-08 | Outpatient (CLI) | payer OTHER ==
--- NOTE | 2019-11-08 10:04 | P.HPBAR ---
Bariatric H&P - History & Physicial H&P Date: 11/08/19 History & Physicial: Visit/CC: Patient initial contact: Initial weight: 117.197 kg Initial weight in pounds: Height: Initial BMI: Last weight: 257 Current weight: 261 Current weight in pounds: Current BMI: 49.3 [place] body weight (based on NIH guidelines): Excess body weight loss: The patient is a 44 year-old F who presents for Bariatric Assessment. Patient presents today for lap band fill. She currently is hungry. Requesting a fill of her band. Her band was emptied several weeks ago. Past Medical History Past Medical History: Osteoarthritis (OA), Thyroid Disorder Additional Past Medical History / Comment(s): hx genital herpes, anemia History of Any Multi-Drug Resistant Organisms: None Reported Past Surgical History: Bariatric Surgery, Cholecystectomy Additional Past Surgical History / Comment(s): BILATERAL CARPAL TUNNEL RELEASE , LEFT KNEE ARTHROSCOPIC, LAP BAND Past Anesthesia/Blood Transfusion Reactions: Previous Problems w/ Anesthesia, Motion Sickness, Postoperative Nausea & Vomiting (PONV) Additional Past Anesthesia/Blood Transfusion Reaction / Comm: "STATES WOKE UP SURING SURGERY" Smoking Status: Former smoker, Unknown if ever smoked - Past Family History Mother Family Medical History: Deep Vein Thrombosis (DVT), Vascular Disorder Surgical - Exam - General well developed, well nourished, no distress - Eyes PERRL - ENT normal pinna - Neck no masses - Respiratory normal expansion - Cardiovascular Rhythm: regular - Abdomen Abdomen: soft, non tender Bariatric Assessment & Plan Plan: Patient LAP-BAND was just appeared she had 4 mL added to her band. She will follow-up in 2 weeks Bariatric Checklist Checklist: Plan: Checklist: EGD: 1. Hiatal hernia: 2. H. Pylori: HgbA1c: Vitamin D: Smoking: Former smoker Primary care physician referral: [facility] Psychiatry clearance: Cardiology clearance: Sleep study: Diet journal: VTE risk score: VTE risk level: Rehab needs at discharge:
[2019-11-08 10:09] VITALS: BP 128/76; PULSE 76; TEMP 98.5; BMI 49.3
== END | disposition home or self-care (01) ==
LOC: BARWHC3 09:09
PROVIDERS: ATTEND Surgery
DX: Z46.51 Encounter for fitting and adjustment of gastric lap band (principal); Z87.891 Personal history of nicotine dependence; Z98.84 Bariatric surgery status; Z90.49 Acquired absence of other specified parts of digestive tract
CPT/HCPCS: 99212

== ENCOUNTER → 2019-12-13 | Outpatient (CLI) | payer OTHER ==
[2019-12-13 09:55] VITALS: BP 132/87; PULSE 78; RESP 18; TEMP 98.4; BMI 48.5
--- NOTE | 2019-12-13 10:05 | P.HPBAR ---
Bariatric H&P - History & Physicial H&P Date: 12/13/19 History & Physicial: Visit/CC: follow up band adjustment Patient initial contact: Initial weight: 117.197 kg Initial weight in pounds: 258.38 Height: 5 ft 1 in Initial BMI: 48.8 Last weight: Current weight: 116.483 kg Current weight in pounds: 256.80 Current BMI: 48.5 [place] body weight (based on NIH guidelines): 47.627 kg Excess body weight loss: 1.0% The patient is a 44 year-old F who presents for Bariatric Assessment. Patient was a safer LAP-BAND adjustment. She is wishing to have a fill. She feels hungry. She is lost 4 pounds since her last visit. Past Medical History Past Medical History: Osteoarthritis (OA), Thyroid Disorder Additional Past Medical History / Comment(s): hx genital herpes, anemia History of Any Multi-Drug Resistant Organisms: None Reported Past Surgical History: Bariatric Surgery, Cholecystectomy Additional Past Surgical History / Comment(s): BILATERAL CARPAL TUNNEL RELEASE , LEFT KNEE ARTHROSCOPIC, LAP BAND Past Anesthesia/Blood Transfusion Reactions: Previous Problems w/ Anesthesia, Motion Sickness, Postoperative Nausea & Vomiting (PONV) Additional Past Anesthesia/Blood Transfusion Reaction / Comm: "STATES WOKE UP SURING SURGERY" Past Psychological History: Anxiety, Depression Smoking Status: Former smoker, Unknown if ever smoked Past Alcohol Use History: None Reported Additional Past Alcohol Use History / Comment(s): QUIT SMOKING IN 2000, STARTED SMOKING AGE15/ LESS THAN 1/2 PPD Past Drug Use History: Marijuana Additional Drug Use History / Comment(s): medical marijuana - Past Family History Mother Family Medical History: Deep Vein Thrombosis (DVT), Vascular Disorder Surgical - Exam Vital Signs Temp Pulse Resp BP 98.4 F 78 18 132/87 12/13/19 09:47 12/13/19 09:47 12/13/19 09:47 12/13/19 09:47 - General well developed, well nourished, no distress - Eyes PERRL - Abdomen Abdomen: soft, non tender Bariatric Assessment & Plan Plan: The patient's Bandar adjusted. She had 1 mL added to her band. She currently has 5 mL in the band. She'll follow-up in 4 weeks. Bariatric Checklist Checklist: Plan: Checklist: EGD: 1. Hiatal hernia: 2. H. Pylori: HgbA1c: Vitamin D: Smoking: Former smoker Primary care physician referral: [facility] Psychiatry clearance: Cardiology clearance: Sleep study: Diet journal: VTE risk score: VTE risk level: Rehab needs at discharge:
== END | disposition home or self-care (01) ==
LOC: BARWHC3 09:06
PROVIDERS: ATTEND Surgery
DX: Z46.51 Encounter for fitting and adjustment of gastric lap band (principal); Z90.49 Acquired absence of other specified parts of digestive tract; Z98.84 Bariatric surgery status
CPT/HCPCS: 99212

== ENCOUNTER → 2021-05-09 | Outpatient (CLI) | payer OTHER ==
--- NOTE | 2021-05-09 12:34 | EEG ---
ELECTROENCEPHALOGRAM REPORT DATE OF SERVICE: 05/09/2021 PREAMBLE: This is a 45-year-old female referred for syncope. Patient has been having dizzy spells for the past few months. She states that her body will begin to tremble and she has an overwhelming feeling come over her. She had a cardiac workup which came back normal. No history of seizure. EEG FINDINGS: This is a 21-channel digital EEG recorded with video component, utilizing 10/20 international system with referential and bipolar montages. Background consists of well developed, well regulated, moderate voltage activity in 10 hertz alpha. Background is posterior-dominant and reactive to eye opening and closing. Photic driving response was seen with some flash frequencies. Hyperventilation was not done. Some drowsiness was seen with appearance of bilaterally symmetric theta frequency rhythm. During drowsiness, there were two episodes of paroxysmal higher voltage 6 hertz theta activity seen in bihemispheric region, lasting for 3 seconds each. No clinical correlate was noted with it. Deeper stages of sleep were not seen. No focal or generalized epileptiform activity was seen. EKG channel showed no obvious arrhythmia. IMPRESSION: This is a borderline EEG due to recording of two episodes of higher amplitude 6 hertz theta activity in generalized distribution during drowsiness, lasting for 3 seconds each. No associated clinical correlate was noted. This is of uncertain significance, and it does not appear epileptiform in nature. However, if your suspicion for seizure is high, suggest prolonged, sleep-deprived EEG. No clear- cut epileptiform activity was seen. MMODL / IJN: [id number] / MARK
== END ==
LOC: NEUROMAIN 07:54
PROVIDERS: ATTEND Family Medicine
DX: R55 Syncope and collapse (principal); Z87.891 Personal history of nicotine dependence; Z88.8 Allergy status to other drugs, medicaments and biological substances; Z91.041 Radiographic dye allergy status
CPT/HCPCS: 95816

== ENCOUNTER 2022-09-24 16:40 | Emergency (ER) | payer OTHER ==
[2022-09-24] MEDS ORDERED: ONDANSETRON ODT 4 MG TAB PO STA (17:24)
[2022-09-24] MEDS ORDERED: IBUPROFEN 600 MG TAB PO STA (17:24)
--- NOTE | 2022-09-24 17:29 | ED ---
General Adult HPI - General Chief complaint: Headache Stated complaint: headache Time Seen by Provider: 09/24/22 16:54 Source: patient Mode of arrival: ambulatory Limitations: no limitations - History of Present Illness Initial comments: 47-year-old female with a past medical history significant for migraines presents to the ED with a chief complaint of headache. Patient states that she woke up this morning with a headache, currently 4/10 in severity after taking Excedrin. Patient states headache is different from her history of migraines. States that she is seeing "fuzzy lines" and states that overall she feels "fuzzy" around her whole head and neck. Associated photophobia and phonophobia. So she nausea no vomiting. Patient admits that she sees a chiropractor and does receive neck manipulation, last manipulation 2 weeks ago. Chest pain or shortness of breath. No other complaints. - Related Data Home Medications Medication Instructions Recorded Confirmed Spironolactone [Aldactone] 50 mg PO DAILY 06/18/15 09/24/22 Albuterol Inhaler [Ventolin Hfa 2 puff INHALATION RT-Q6H PRN 09/24/22 09/24/22 Inhaler] Ashwagandha Root Extract 300 mg PO DAILY 09/24/22 09/24/22 [Ashwagandha] Cider Vinegar [Apple Cider Vinegar] 300 mg PO DAILY 09/24/22 09/24/22 Levothyroxine Sodium [Synthroid] 137 mcg PO DAILY 09/24/22 09/24/22 Topiramate 50 mg PO BID 09/24/22 09/24/22 Turmeric Root Extract [Turmeric] 500 mg PO DAILY 09/24/22 09/24/22 methocarbamoL [Methocarbamol] 750 mg PO DAILY 09/24/22 09/24/22 norethindrone-e.estradioL-iron 1 tab PO DAILY 09/24/22 09/24/22 [Blisovi Fe 1-20 Tablet] Allergies Allergy/AdvReac Type Severity Reaction Status Date / Time nitrofurantoin Allergy Rash/Hives Verified 09/24/22 17:40 [From Macrobid] povidone-iodine Allergy Rash/Hives Verified 09/24/22 17:40 [From Betadine] soap [From Betadine] Allergy Rash/Hives Verified 09/24/22 17:40 glue used for surgical Allergy Rash/Hives Uncoded 09/24/22 16:45 incision Review of Systems ROS Statement: Those systems with pertinent positive or pertinent negative responses have been documented in the HPI. ROS Other: All systems not noted in ROS Statement are negative. Past Medical History Past Medical History: Osteoarthritis (OA), Thyroid Disorder Additional Past Medical History / Comment(s): hx genital herpes, anemia, migraines History of Any Multi-Drug Resistant Organisms: None Reported Past Surgical History: Bariatric Surgery, Cholecystectomy Additional Past Surgical History / Comment(s): BILATERAL CARPAL TUNNEL RELEASE , LEFT KNEE ARTHROSCOPIC, LAP BAND Past Anesthesia/Blood Transfusion Reactions: Previous Problems w/ Anesthesia, Motion Sickness, Postoperative Nausea & Vomiting (PONV) Additional Past Anesthesia/Blood Transfusion Reaction / Comment(s): "STATES WOKE UP SURING SURGERY" Past Psychological History: Anxiety, Depression Smoking Status: Former smoker, Unknown if ever smoked Past Alcohol Use History: Rare Past Drug Use History: None Reported - Past Family History Mother Family Medical History: Deep Vein Thrombosis (DVT), Vascular Disorder General Exam Limitations: no limitations Head exam: Present: atraumatic Eye exam: Present: normal appearance, PERRL, EOMI, other (Left beating horizontal nystagmus on right gaze.) ENT exam: Present: normal exam, mucous membranes moist (Tongue Midline uvula midline.) Neck exam: Present: normal inspection Respiratory exam: Present: normal lung sounds bilaterally Cardiovascular Exam: Present: regular rate, normal rhythm GI/Abdominal exam: Present: soft (No tenderness. No rebound guarding or rigidity.) Extremities exam: Present: other (Strength 5/5 of bilateral upper and lower extremities. Subjective sensation deficit of the right upper extremity however otherwise sensation is intact in all other extremities.) Back exam: Present: normal inspection Neurological exam: Present: alert, oriented X3, CN II-XII intact (GCS 15. Finger to nose intact, rapid alternating hand movements intact, [id number] intact.) Psychiatric exam: Present: normal affect, normal mood Skin exam: Present: warm, dry Course Vital Signs 09/24/22 09/24/22 16:42 19:09 Temperature 97.6 F 98.3 F Pulse Rate 79 62 Respiratory 20 19 Rate Blood Pressure 125/93 128/87 O2 Sat by Pulse 100 100 Oximetry Medical Decision Making - Medical Decision Making Was pt. sent in by a medical professional or institution (BARBI Ponce, SALES REPRESENTATIVE JEWELRY, urgent care, hospital, or snf...) When possible be specific @ -No Did you speak to anyone other than the patient for history (EMS, parent, family, police, friend...)? What history was obtained from this source @ -No Did you review nursing and triage notes (agree or disagree)? Why? @ -I reviewed and agree with nursing and triage notes Were old charts reviewed (outside hosp., previous admission, EMS record, old EKG, old radiological studies, urgent care reports/EKG's, snf records)? Report findings @ -Charts reviewed showing history of migraines. Differential Diagnosis (chest pain, altered mental status, abdominal pain women, abdominal pain men, vaginal bleeding, weakness, fever, dyspnea, syncope, headache, dizziness, GI bleed, back pain, seizure, CVA, palpatations, mental health, musculoskeletal)? @ -Differential Headache: Migraine, tension, cluster, carbon monoxide, central venous thrombosis, pension karma temporal arteritis, acute closure glaucoma, intercranial hemorrhage, mastoiditis, sinusitis, head injury, this is not meant to be an all-inclusive list. EKG interpreted by me (3pts min.). @ -As above X-rays interpreted by me (1pt min.). @ -None done CT interpreted by me (1pt min.). @ -CTA head and neck showed no acute findings. CTA brain showed no acute findings. U/S interpreted by me (1pt. min.). @ -None done What testing was considered but not performed or refused? (CT, X-rays, U/S, labs)? Why? @ -None What meds were considered but not given or refused? Why? @ -None Did you discuss the management of the patient with other professionals (professionals i.e. BARBI Ponce, SALES REPRESENTATIVE [employer]ELRY, lab, RT, psych nurse, hospice social worker, gas controller, teacher, radio electronics officer, social work case manager)? Give summary @ -No Was smoking cessation discussed for >3mins.? @ -No Was critical care preformed (if so, how long)? @ -No Were there social determinants of health that impacted care today? How? (Homelessness, low income, unemployed, alcoholism, drug addiction, transportation, low edu. Level, literacy, decrease access to med. care, custodial, rehab)? @ -No Was there de-escalation of care discussed even if they declined (Discuss DNR or withdrawal of care, Hospice)? DNR status @ -No What co-morbidities impacted this encounter? (DM, HTN, Smoking, COPD, CAD, Cancer, CVA, ARF, Chemo, Hep., AIDS, mental health diagnosis, sleep apnea, morbid obesity)? @ -None Was patient admitted / discharged? Hospital course, mention meds given and route, prescriptions, significant lab abnormalities, going to OR and other pertinent info. @ -Discharge. She had improvement of pain and nausea with ibuprofen and Zofran. Imaging studies as above. Discussed findings with patient and patient discharged home in stable condition. Discussed return precautions with patient who verbalizes agreement. Undiagnosed new problem with uncertain prognosis? @ -No Drug Therapy requiring intensive monitoring for toxicity (Heparin, Nitro, Insulin, Cardizem)? @ -No Were any procedures done? @ -No Diagnosis/symptom? @ -Migraine Acute, or Chronic, or Acute on Chronic? @ -Acute Uncomplicated (without systemic symptoms) or Complicated (systemic symptoms)? @ -Uncomplicated Side effects of treatment? @ -No Exacerbation, Progression, or Severe Exacerbation? @ -No Poses a threat to life or bodily function? How? (Chest pain, [place], [place], pneumonia, PE, COPD, DKA, ARF, appy, cholecystitis, CVA, Diverticulitis, Homicidal, Suicidal, threat to staff... and all critical care pts) @ -No - Lab Data Result diagrams: 09/24/22 17:35 09/24/22 17:35 Lab Results 09/24/22 09/24/22 09/24/22 Range/Units 17:35 17:35 17:35 WBC 9.9 (3.8-10.6) k/uL RBC 4.16 (3.80-5.40) m/uL Hgb 13.1 (11.4-16.0) gm/dL Hct 39.4 (34.0-46.0) % MCV 94.6 (80.0-100.0) fL MCH 31.5 (25.0-35.0) pg MCHC 33.3 (31.0-37.0) g/dL RDW 12.8 (11.5-15.5) % Plt Count 333 (150-450) k/uL MPV 7.0 Neutrophils % 50 % Lymphocytes % 40 % Monocytes % 6 % Eosinophils % 2 % Basophils % 0 % Neutrophils # 5.0 (1.3-7.7) k/uL Lymphocytes # 4.0 (1.0-4.8) k/uL Monocytes # 0.6 (0-1.0) k/uL Eosinophils # 0.2 (0-0.7) k/uL Basophils # 0.0 (0-0.2) k/uL Sodium 139 (137-145) mmol/L Potassium 4.1 (3.5-5.1) mmol/L Chloride 106 (98-107) mmol/L Carbon Dioxide 25 (22-30) mmol/L Anion Gap 8 mmol/L BUN 12 (7-17) mg/dL Creatinine 0.81 (0.52-1.04) mg/dL Est GFR (CKD-EPI)AfAm >90 (>60 ml/min/1.73 sqM) Est GFR (CKD-EPI)NonAf 87 (>60 ml/min/1.73 sqM) Glucose 95 (74-99) mg/dL Calcium 9.1 (8.4-10.2) mg/dL Total Bilirubin 0.3 (0.2-1.3) mg/dL AST 22 (14-36) U/L ALT 17 (4-34) U/L Alkaline Phosphatase 30 L (38-126) U/L Total Protein 7.3 (6.3-8.2) g/dL Albumin 4.2 (3.5-5.0) g/dL Amylase 52 (30-110) U/L Lipase 136 (23-300) U/L Urine Color Colorless Urine Appearance Clear (Clear) Urine pH 7.0 (5.0-8.0) Ur Specific [place] 1.005 (1.001-1.035) Urine Protein Negative (Negative) Urine Glucose (UA) Negative (Negative) Urine Ketones Negative (Negative) Urine Blood Negative (Negative) Urine Nitrite Negative (Negative) Urine Bilirubin Negative (Negative) Urine Urobilinogen <2.0 (<2.0) mg/dL Ur Leukocyte Esterase Negative (Negative) - EKG Data EKG Comments: AG shows a sinus rhythm at [address] or T-wave changes. TX 149, QRS 91, QT/QTC 415/420. Disposition Clinical Impression: Migraine Disposition: HOME SELF-CARE Condition: Good Instructions (If sedation given, give patient instructions): Migraine Headache (ED) Additional Instructions: Please return to the Emergency Department if symptoms worsen or any other concerns. Is patient prescribed a controlled substance at d/c from ED?: No Referrals: Nonstaff,Physician [Primary Care Provider] - 1-2 days Time of Disposition: 19:00
[2022-09-24 17:56] LABS: Basophils % (A) 0 %; Eosinophils # (A) 0.2 k/uL (0-0.7); Eosinophils % (A) 2 %; HCT 39.4 % (34.0-46.0); HGB 13.1 gm/dL (11.4-16.0); Lymphocytes % (A) 40 %; MCH 31.5 pg (25.0-35.0); MCHC 33.3 g/dL (31.0-37.0); MCV 94.6 fL (80.0-100.0); Monocytes # (A) 0.6 k/uL (0-1.0); Monocytes % (A) 6 %; Neutrophils % (A) 50 %; Platelet Count 333 k/uL (150-450); RBC 4.16 m/uL (3.80-5.40); RDW 12.8 % (11.5-15.5); WBC 9.9 k/uL (3.8-10.6)
[2022-09-24 18:00] LABS: Appearance,Urine Clear (Clear); Bilirubin,Urine Negative (Negative); Blood,Urine Negative (Negative); Color,Urine Colorless; Glucose,Urine (UA) Negative (Negative); Ketones,Urine Negative (Negative); Leukocyte Esterase,Urine Negative (Negative); Nitrite,Urine Negative (Negative); Protein,Urine Negative (Negative); Specific Gravity,Urine 1.005 (1.001-1.035); Urobilinogen,Urine <2.0 mg/dL (<2.0)
--- NOTE | 2022-09-24 18:17 | CT ---
EXAMINATION TYPE: CT brain wo con DATE OF EXAM: 09/24/2022 COMPARISON: None HISTORY: ARTEAGA, fuzzy, and neck pain hx of neck manipulation CT DLP: 1133.[address] of the brain was performed. The ventricles, basal cisterns and sulci overlying the cerebral convexities demonstrate a normal appe arance. There is no evidence for intracranial hemorrhage or sulcal effacement. No mass effects are seen. Osseous calvarium is intact. If symptoms persist consider MRI as clinically warranted. IMPRESSION: 1. No acute intracranial process is seen at this time.
[2022-09-24 18:23] LABS: ALT 17 U/L (4-34); AST 22 U/L (14-36); African American GFR (CKD) >90 (>60 ml/min/1.73 sqM); Albumin 4.2 g/dL (3.5-5.0); Alkaline Phosphatase 30 U/L (38-126); Amylase 52 U/L (30-110); Anion Gap 8 mmol/L; Blood Urea Nitrogen 12 mg/dL (7-17); Calcium 9.1 mg/dL (8.4-10.2); Carbon Dioxide 25 mmol/L (22-30); Chloride 106 mmol/L (98-107); Glucose 95 mg/dL (74-99); Lipase 136 U/L (23-300); Non-African American GFR(CKD) 87 (>60 ml/min/1.73 sqM); Potassium 4.1 mmol/L (3.5-5.1); Sodium 139 mmol/L (137-145); Total Bilirubin 0.3 mg/dL (0.2-1.3); Total Protein 7.3 g/dL (6.3-8.2)
--- NOTE | 2022-09-24 18:36 | CT ---
EXAMINATION TYPE: CT angio head neck DATE OF EXAM: 09/24/2022 COMPARISON: none HISTORY: ARTEAGA, fuzzy, and neck pain hx of neck manipulation CT DLP: 712.3 mGycm CONTRAST: Performed with IV Contrast, patient injected with 65ml mL of Isovue 370. Combination Contrast CTA cervical carotids and [place] CTA cervical carotids with 3-D recons truction Contrast CTA of the cervical carotids was performed 3-D reconstruction imaging obtained at a separate workstation. Right carotid system: Mild plaque is seen of the right common carotid artery. There is mild plaque a lso noted at the carotid bulb and proximal ICA. No significant diameter reduction. ECA is patent. Right vertebral artery appears unremarkable. Left carotid system: Mild plaque is seen of the left common carotid artery. There is mild plaque als o noted at the carotid bulb and proximal ICA. No significant diameter reduction. ECA is patent. Lef t vertebral artery appears unremarkable. IMPRESSION: 1. No significant diameter reduction to account for the patient's symptoms. No evidence for dissection. CTA [place] with 3-D reconstruction Contrast CTA of the [place] was performed 3-D reconstruction imaging obtained at a separate workstation. Vertebrobasilar system as well as intracranial portions of the internal carotid arteries and their [place] tributaries are patent. I do not see evidence for sizable aneurysm or vascular malformation. Pl ease note MRI provides greater sensitivity and specificity. Visualized brain appears grossly unremar kable. IMPRESSION: 1. No significant abnormality. NASCET criteria was used in interpretation of this exam?
[2022-09-24 19:12] VITALS: BP 128/87; PULSE 62; RESP 19; TEMP 98.3
== END 2022-09-24 19:20 | disposition home or self-care (01) ==
LOC: EC 16:40
DX: G43.909 Migraine, unspecified, not intractable, without status migrainosus (principal); E07.9 Disorder of thyroid, unspecified; F41.9 Anxiety disorder, unspecified; F32.A Depression, unspecified; Z79.899 Other long term (current) drug therapy; Z87.891 Personal history of nicotine dependence; Z88.6 Allergy status to analgesic agent; Z88.8 Allergy status to other drugs, medicaments and biological substances; Z79.890 Hormone replacement therapy
CPT/HCPCS: 36415; 93005; 80053; 82150; 83690; 85025; 81003; 70496; 70450; 70498; 99285; Q9967